=== PATIENT | female | born 1985 | race African-American/Black ===

== ENCOUNTER 2019-02-22 15:42 | Emergency (ER) | payer BC, OTHER ==
[~2019-02-22] VITALS: Ht 167.6 cm; Wt 97.5 kg
[2019-02-22] MEDS ORDERED: IBUPROFEN 600600 M1 PO (16:48)
[2019-02-22 17:15] VITALS: BP 130/79
== END 2019-02-22 17:05 | disposition home or self-care (01) ==
LOC: ER 15:42
DX: N75.0 Cyst of Bartholin's gland (principal)

== ENCOUNTER 2019-02-28 17:50 | Emergency (ER) | payer BC ==
[~2019-02-28] VITALS: Ht 167.6 cm; Wt 98.0 kg
[~2019-02-28 17:50] MED LIST: IBUPROFEN 600600 M1 PO
[2019-02-28] MEDS ORDERED: BACTRIM DS TAB1 EACH PO ×2 (19:43→19:47)
[2019-02-28] MEDS ORDERED: NORCO 5-325 TA1 EAC1 PO ×2 (19:43→19:47)
[2019-02-28 20:40] VITALS: BP 133/81
== END 2019-02-28 20:40 | disposition home or self-care (01) ==
LOC: ER 17:50
DX: N75.0 Cyst of Bartholin's gland (principal); N89.8 Other specified noninflammatory disorders of vagina